=== PATIENT | female | born 1950 | race Asian ===

== ENCOUNTER 2016-12-11 11:51 | Emergency (ER) | payer SELFPAY ==
[~2016-12-11] VITALS: Ht 144.8 cm; Wt 45.4 kg
--- NOTE | 2016-12-11 11:51 | NUR ---
Patient was BIBA and taken to bed 07 via gurney per EMS.
[2016-12-11 11:52] VITALS: BP 136/86
--- NOTE | 2016-12-11 11:55 | NUR ---
Dr. Khan evaluating patient at bedside.
--- NOTE | 2016-12-11 12:12 | NUR ---
[employer] phones used to translate. Anthony health insurance agent # [id number]
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
--- NOTE | 2016-12-11 12:35 | NUR ---
Patient does not wish to proceed with medical care recommended by Dino. Patient given information related to possible complications, up to and including , which could occur as a result of leaving hospital at this time. Patient verbalizes understanding of risks involved leaving against medical advice. Patient has signed AMA form. [employer] phones used, Mandarin. Zach [employer] driver # [id number]
--- NOTE | 2016-12-11 12:43 | NUR ---
Chart checked and completed. The patient's care was reviewed and supervised by Liam Benavides RN.
--- NOTE | 2016-12-11 12:43 | NUR ---
PATIENT WENT AMA
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
== END 2016-12-11 12:43 | disposition left against medical advice (07) ==
LOC: MED 11:51
DX: S50.311A Abrasion of right elbow, initial encounter (principal); S80.212A Abrasion, left knee, initial encounter; W05.2XXA Fall from non-moving motorized mobility scooter, initial encounter; Y93.89 Activity, other specified; Y92.89 Other specified places as the place of occurrence of the external cause; Y99.8 Other external cause status
CPT/HCPCS: 99283